=== PATIENT | male | born 1980 | race Caucasian/White ===

== ENCOUNTER 2017-10-13 00:58 | Emergency (ER) | payer OTHER | END 2017-10-13 01:20 | disposition left against medical advice (07) | LOC: ER 00:58 → EDBD 00:58 → ER 01:20 | DX: T40.1X1A Poisoning by heroin, accidental (unintentional), initial encounter (principal); Z53.21 Procedure and treatment not carried out due to patient leaving prior to being seen by health care provider; Y92.9 Unspecified place or not applicable ==

== ENCOUNTER 2021-03-14 21:11 | Emergency (ER) | payer MEDICAID, OTHER ==
[~2021-03-14] VITALS: Ht 180.3 cm; Wt 90.7 kg
[2021-03-14 21:15] VITALS: BP 124/98
[2021-03-14] MEDS ORDERED: LIDOCAINE 1% HCL (LOCAL ANESTH.) INJ 20ML MDV IJ ONE (23:15)
[2021-03-14] MEDS ORDERED: TETANUS-DIPTH-ACEL PERTUSSIS 0.5ML SYR Tdap IM ONE (23:15)
== END 2021-03-15 00:42 | disposition home or self-care (01) ==
LOC: ER 21:11
DX: S61.211A Laceration without foreign body of left index finger without damage to nail, initial encounter (principal); Z23 Encounter for immunization; W26.0XXA Contact with knife, initial encounter; Y93.89 Activity, other specified; Y92.89 Other specified places as the place of occurrence of the external cause; Y99.8 Other external cause status
CPT/HCPCS: 12002; 90471; 90715; 99283; J2001